=== PATIENT | female | born 1940 | race Two or more races ===

== ENCOUNTER 2021-11-12 15:48 | Emergency (ER) | payer OTHER ==
[~2021-11-12] VITALS: Ht 167.6 cm; Wt 104.3 kg
[2021-11-12] MEDS ORDERED: SYNTHROID75 MCG (15:54)
[2021-11-12] MEDS ORDERED: GRALISE600 MG (15:55)
[2021-11-12] MEDS ORDERED: NORVASC5 MG (15:55)
== END 2021-11-12 19:22 | disposition home or self-care (01) ==
LOC: ER 15:48
DX: S82.122A Displaced fracture of lateral condyle of left tibia, initial encounter for closed fracture (principal); W18.30XA Fall on same level, unspecified, initial encounter; Y93.H2 Activity, gardening and landscaping; Y92.017 Garden or yard in single-family (private) house as the place of occurrence of the external cause; S59.912A Unspecified injury of left forearm, initial encounter; S09.90XA Unspecified injury of head, initial encounter; I10 Essential (primary) hypertension; S52.602A Unspecified fracture of lower end of left ulna, initial encounter for closed fracture